=== PATIENT | female | born 2005 | race Two or more races ===

== ENCOUNTER 2023-07-05 12:09 | Emergency (ER) | payer OTHER ==
[~2023-07-05] VITALS: Ht 160 cm; Wt 90.9 kg
[2023-07-05 12:11] VITALS: TEMP 99.8
[2023-07-05 13:39] VITALS: BP 116/70; PULSE 75; RESP 18
[2023-07-05] MEDS ORDERED: LIDOCAINE/PRILOCAINE 2.5% 30 GM CREAM TP ONE (14:15)
[2023-07-05] MEDS ORDERED: DOXY-354 PO (15:46)
== END 2023-07-05 15:57 | disposition home or self-care (01) ==
LOC: EMS 12:09
DX: L02.01 Cutaneous abscess of face (principal)
CPT/HCPCS: 10060; 99283

== ENCOUNTER 2023-09-28 13:29 | Emergency (ER) | payer OTHER ==
[~2023-09-28] VITALS: Ht 160 cm; Wt 95.5 kg
[~2023-09-28 13:29] MED LIST: DOXY-354 PO
[2023-09-28 14:01] VITALS: TEMP 97.5
[2023-09-28] MEDS ORDERED: PROPARACAINE HCL 0.5% 15 ML OPHTHALMIC SOLUTION OS ONE (15:30)
[2023-09-28] MEDS ORDERED: ERYTHROMYCIN 0.5% 3.5 GM TUBE OPHTHALMIC OINTMENT OS ONE (16:00)
[2023-09-28 16:42] VITALS: BP 139/67; PULSE 74; RESP 18
== END 2023-09-28 16:44 | disposition home or self-care (01) ==
LOC: EMS 13:36
DX: H00.015 Hordeolum externum left lower eyelid (principal)
CPT/HCPCS: 99283